=== PATIENT | male | born 1940 | race Caucasian/White ===

== ENCOUNTER 2016-09-27 13:19 | Emergency (ER) | payer OTHER ==
[~2016-09-27] VITALS: Ht 172.7 cm; Wt 77.0 kg
[~2016-09-27 13:19] MED LIST: AMLODIPINE BES2.5 MG PO; ASPIRIN325 MG PO; CELEXA10 MG PO; COQ-10100 MG PO; ELIQUIS5 MG PO; FINASTERIDE5 M1 PO; FINASTERIDE5 MG PO; FUROSEMIDE40 MG PO; GLUCOSAMINE H1500 MG PO; LISINOPRIL20 MG PO; LISINOPRIL40 MG PO; LOPRESSOR25 MG PO; MULTIVITAMIN1 EAC2 PO; SAW PALMETTO 1160 MG PO; SAW PALMETTO160 M1 PO; TYLENOL EXTRA500 MG PO; VITAMIN C500 M1 PO; VITAMIN D1000 UNIT PO; XALATAN2.5 ML BOTH EYES; ZESTRIL,PRINIVI40 MG PO
[2016-09-27] MEDS ORDERED: TAMSULOSIN HCL0.4 MG PO (14:46)
[2016-09-27] MEDS ORDERED: AMLODIPINE BES2.5 MG PO (14:47)
[2016-09-27] MEDS ORDERED: LATANOPROST2.5 ML BOTH EYES (14:47)
[2016-09-27 15:03] LABS: HEMATOCRIT 43.2 % (38.0-50.0); MCH 33.6 PG (29.0-34.0); MCHC 33.8 G/DL (30.0-36.0); MCV 99.3 FL (86-99); PLATELET COUNT 190 K/uL (156-360); RBC DIS.WIDTH-CV 12.3 % (11.8-14.6); RBC DIS.WIDTH-SD 44.1 % (39-53); RED BLOOD COUNT 4.35 M/uL (4.00-5.50); WHITE BLOOD COUNT 6.9 K/uL (4.1-10.2)
[2016-09-27 15:09] LABS: PROTHROMBIN TIME 28.9 (9.2-11.2)
[2016-09-27 15:11] LABS: INTER. NORMALIZED RATIO 2.8
[2016-09-27 15:13] LABS: CHLORIDE 107 mEq/L (99-109); SODIUM 143 mEq/L (136-147)
[2016-09-27 15:14] LABS: GLUCOSE 100 mg/dL (70-99)
[2016-09-27 15:16] LABS: ANION GAP 10 MEQ/L (2-14)
[2016-09-27 15:18] LABS: GFR ESTIMATE (CALCULATED) > 59 mL/min/
[2016-09-27 15:19] LABS: UREA NITROGEN (BUN) 19 mg/dL (9-23)
[2016-09-27 17:39] VITALS: BP 135/58
== END 2016-09-27 17:40 | disposition home or self-care (01) ==
LOC: EME 13:19
PROC: 2Y41X5Z Packing of Nasal Region using Packing Material (ICD-10-PCS; principal; 2016-09-27)
DX: R04.0 Epistaxis (principal); Z79.01 Long term (current) use of anticoagulants; Z86.73 Personal history of transient ischemic attack (TIA), and cerebral infarction without residual deficits
CPT/HCPCS: 80048; 85027; 85610; 86850; 86900; 86901; 99281; 99283

== ENCOUNTER 2017-02-02 03:37 | Inpatient (IN) | payer OTHER ==
[~2017-02-02] VITALS: Ht 172.7 cm; Wt 77.7 kg
[~2017-02-02 03:37] MED LIST changes: +LATANOPROST2.5 ML BOTH EYES; +TAMSULOSIN HCL0.4 MG PO
[2017-02-02 05:11] LABS: ADD MIUA? NO; BILIRUBIN NEGATIVE; BLOOD NEGATIVE; COLOR YELLOW ((YELLOW)); GLUCOSE (STRIP) NEGATIVE; KETONES NEGATIVE; LEUKOCYTES NEGATIVE; NITRITE NEGATIVE; PROTEIN (STRIP) NEGATIVE; SPECIFIC GRAVITY 1.012 (1.000-1.030); UCUL ADDED? NO; UROBILINOGEN 0.2 MG/DL (0.2-1.0)
[2017-02-02 05:24] LABS: CHLORIDE 106 mEq/L (99-109); POTASSIUM 3.2 mEq/L (3.7-5.4); SODIUM 138 mEq/L (136-147)
[2017-02-02 05:27] LABS: GLUCOSE 88 mg/dL (70-99)
[2017-02-02 05:28] LABS: ANION GAP 12 MEQ/L (2-14); TOTAL BILIRUBIN 1.3 mg/dL (0.0-1.0)
[2017-02-02 05:30] LABS: ALKALINE PHOSPHATASE 50 IU/L (3-129); GFR ESTIMATE (CALCULATED) > 59 mL/min/
[2017-02-02 05:31] LABS: HEMATOCRIT 41.4 % (38.0-50.0); MCH 33.6 PG (29.0-34.0); MCHC 34.3 G/DL (30.0-36.0); MCV 98.1 FL (86-99); MEAN PLAT.VOLUME 9.3 uM^3 (9.0-12.4); PLATELET COUNT 133 K/uL (156-360); RBC DIS.WIDTH-CV 12.2 % (11.8-14.6); RBC DIS.WIDTH-SD 44.1 % (39-53); RED BLOOD COUNT 4.22 M/uL (4.00-5.50); UREA NITROGEN (BUN) 17 mg/dL (9-23); WHITE BLOOD COUNT 4.8 K/uL (4.1-10.2)
[2017-02-02 05:32] LABS: DIRECT BILIRUBIN 0.5 mg/dL (0.0-0.3)
[2017-02-02 05:34] LABS: LIPASE 47 U/L (1.0-51.0)
[2017-02-02] MEDS ORDERED: COUMADIN2.5 MG PO (05:37)
[2017-02-02] MEDS ORDERED: VITAMIN D2000 UNI1 PO (05:38)
[2017-02-02] MEDS ORDERED: ASCORBIC ACID500 M3 PO (05:39)
[2017-02-02] MEDS ORDERED: CO Q-10200 MG PO (05:39)
[2017-02-02] MEDS ORDERED: SAW PALMETTO450 MG PO (05:40)
[2017-02-02] MEDS ORDERED: PROBIOTIC1 EAC7 PO (05:40)
[2017-02-02 08:28] LABS: INTER. NORMALIZED RATIO 2.8; PROTHROMBIN TIME 29.5 (9.2-11.2)
[2017-02-02 08:57] LABS: TROP-I INTERPRETATION NEGATIVE; TROPONIN-I 0.01 ng/mL (0.0-0.30)
[2017-02-02 10:25] VITALS: BP 119/58
[2017-02-02 11:59] VITALS: BP 113/55
[2017-02-02 15:29] LABS: TROP-I INTERPRETATION NEGATIVE
[2017-02-02 16:00] LABS: TROPONIN-I 0.02 ng/mL (0.0-0.30)
[2017-02-02 16:10] VITALS: BP 139/55
[2017-02-02 19:15] VITALS: BP 111/52
[2017-02-02 21:22] LABS: TROP-I INTERPRETATION NEGATIVE; TROPONIN-I 0.04 ng/mL (0.0-0.30)
[2017-02-02 23:12] VITALS: BP 116/57
[2017-02-03] VITALS (7 sets, daily range): BP systolic 100–156; BP diastolic 53–73
[2017-02-03 07:08] LABS: INTER. NORMALIZED RATIO 3.9
[2017-02-03 07:12] LABS: ALKALINE PHOSPHATASE 50 IU/L (3-129); ANION GAP 4 MEQ/L (2-14); CHLORIDE 106 MEQ/L (99-109); GFR ESTIMATE (CALCULATED) > 59 mL/min/; GLUCOSE 88 mg/dL (70-99); SAMPLE HEMOLYSIS CHECK 0; SAMPLE ICTERIC CHECK 0; SAMPLE LIPEMIA CHECK 0; SODIUM 139 MEQ/L (136-147); TOTAL BILIRUBIN 1.5 MG/DL (0.0-1.0); UREA NITROGEN (BUN) 18 mg/dL (9-23)
[2017-02-03 07:16] LABS: POTASSIUM 4.5 MEQ/L (3.7-5.4)
[2017-02-04 03:24] VITALS: BP 111/55
[2017-02-04 06:15] LABS: HEMATOCRIT 39.6 % (38.0-50.0); MCH 33.5 PG (29.0-34.0); MCHC 33.6 G/DL (30.0-36.0); MCV 99.7 FL (86-99); MEAN PLAT.VOLUME 9.5 uM^3 (9.0-12.4); PLATELET COUNT 128 K/uL (156-360); RBC DIS.WIDTH-CV 12.7 % (11.8-14.6); RBC DIS.WIDTH-SD 47.5 % (39-53); RED BLOOD COUNT 3.97 M/uL (4.00-5.50); WHITE BLOOD COUNT 6.9 K/uL (4.1-10.2)
[2017-02-04 06:34] LABS: ANION GAP 10 MEQ/L (2-14); CHLORIDE 107 MEQ/L (99-109); GFR ESTIMATE (CALCULATED) > 59 mL/min/; GLUCOSE 83 mg/dL (70-99); POTASSIUM 4.2 MEQ/L (3.7-5.4); SAMPLE HEMOLYSIS CHECK 0; SAMPLE ICTERIC CHECK 0; SAMPLE LIPEMIA CHECK 0; SODIUM 141 MEQ/L (136-147); UREA NITROGEN (BUN) 19 mg/dL (9-23)
[2017-02-04 06:50] LABS: INTER. NORMALIZED RATIO 2.3; PROTHROMBIN TIME 23.7 (9.2-11.2)
[2017-02-04 07:45] VITALS: BP 134/59
[2017-02-04 16:00] VITALS: BP 140/61
[2017-02-04 23:20] VITALS: BP 136/65
[2017-02-05 06:15] LABS: HEMATOCRIT 37.8 % (38.0-50.0); MCH 34.6 PG (29.0-34.0); MCHC 34.7 G/DL (30.0-36.0); MCV 99.7 FL (86-99); MEAN PLAT.VOLUME 9.4 uM^3 (9.0-12.4); PLATELET COUNT 133 K/uL (156-360); RBC DIS.WIDTH-CV 12.8 % (11.8-14.6); RBC DIS.WIDTH-SD 47.1 % (39-53); RED BLOOD COUNT 3.79 M/uL (4.00-5.50); WHITE BLOOD COUNT 5.5 K/uL (4.1-10.2)
[2017-02-05 06:40] LABS: ANION GAP 7 MEQ/L (2-14); CHLORIDE 108 MEQ/L (99-109); GFR ESTIMATE (CALCULATED) > 59 mL/min/; GLUCOSE 89 mg/dL (70-99); MAGNESIUM 1.9 mg/dl (1.3-2.7); SAMPLE HEMOLYSIS CHECK 0; SAMPLE ICTERIC CHECK 0; SAMPLE LIPEMIA CHECK 0; SODIUM 140 MEQ/L (136-147); UREA NITROGEN (BUN) 19 mg/dL (9-23)
[2017-02-05 06:43] LABS: INTER. NORMALIZED RATIO 1.8; PROTHROMBIN TIME 18.2 (9.2-11.2)
[2017-02-05 07:25] VITALS: BP 128/88
[2017-02-05 15:40] VITALS: BP 131/60
[2017-02-05 21:00] VITALS: BP 125/78
[2017-02-06 01:09] VITALS: BP 136/60
[2017-02-06 06:54] LABS: MCH 34.5 PG (29.0-34.0); MCHC 34.5 G/DL (30.0-36.0); MEAN PLAT.VOLUME 9.4 uM^3 (9.0-12.4); PLATELET COUNT 153 K/uL (156-360); RBC DIS.WIDTH-CV 12.6 % (11.8-14.6); RBC DIS.WIDTH-SD 46.5 % (39-53); WHITE BLOOD COUNT 6.2 K/uL (4.1-10.2)
[2017-02-06 06:55] LABS: INTER. NORMALIZED RATIO 1.7; PROTHROMBIN TIME 17.5 (9.2-11.2)
[2017-02-06 07:16] LABS: ANION GAP 10 MEQ/L (2-14); CHLORIDE 108 MEQ/L (99-109); GFR ESTIMATE (CALCULATED) > 59 mL/min/; GLUCOSE 83 mg/dL (70-99); MAGNESIUM 1.9 mg/dl (1.3-2.7); SAMPLE HEMOLYSIS CHECK 0; SAMPLE ICTERIC CHECK 0; SAMPLE LIPEMIA CHECK 0; SODIUM 142 MEQ/L (136-147); UREA NITROGEN (BUN) 17 mg/dL (9-23)
[2017-02-06 07:36] VITALS: BP 145/61
[2017-02-06] MEDS ORDERED: ACIDOPHILUS LA1 EACH PO (11:22)
[2017-02-06] MEDS ORDERED: CIPROFLOXACIN500 M1 PO (11:22)
[2017-02-06] MEDS ORDERED: TYLENOL REGULA325 MG PO (11:22)
== END 2017-02-06 15:32 | DRG 872 ==
LOC: EME → 2EAST → EDBD 03:37 → EME 03:37 → EDOF 07:50 → 2EAST 07:50
PROVIDERS: Hospitalist; Internal Medicine; Physician Assistant
DX: R78.81 Bacteremia (principal); J98.11 Atelectasis; I42.9 Cardiomyopathy, unspecified; I69.353 Hemiplegia and hemiparesis following cerebral infarction affecting right non-dominant side; B96.20 Unspecified Escherichia coli [E. coli] as the cause of diseases classified elsewhere; B96.5 Pseudomonas (aeruginosa) (mallei) (pseudomallei) as the cause of diseases classified elsewhere; D69.6 Thrombocytopenia, unspecified; E87.6 Hypokalemia; I48.2 Chronic atrial fibrillation; N40.0 Benign prostatic hyperplasia without lower urinary tract symptoms; H40.9 Unspecified glaucoma; I25.10 Atherosclerotic heart disease of native coronary artery without angina pectoris; I35.2 Nonrheumatic aortic (valve) stenosis with insufficiency; I10 Essential (primary) hypertension; N28.1 Cyst of kidney, acquired; K57.90 Diverticulosis of intestine, part unspecified, without perforation or abscess without bleeding; K76.89 Other specified diseases of liver; Z79.01 Long term (current) use of anticoagulants; Z95.2 Presence of prosthetic heart valve
CPT/HCPCS: 71010; 74177; 76705; 80048; 80053; 80076; 81003; 83605; 83690; 83735; 84484; 85027; 85610; 87040; 87077; 87186; 87801; 92610 GN; 93005; 93306; 99281; 99285; G0378; G8978 GP CK; G8979 GP CH; G8987 GO CJ; G8988 CI; G8996 GN CH; G8997 GN CH; G8998 GN CH; J0456; J0692; J0696; J2543; J7030; J7050

== ENCOUNTER 2017-09-05 09:45 | Emergency (ER) | payer OTHER ==
[~2017-09-05] VITALS: Ht 175.3 cm; Wt 76.7 kg
[~2017-09-05 09:45] MED LIST changes: +ACIDOPHILUS LA1 EACH PO; +ASCORBIC ACID500 M3 PO; +CIPROFLOXACIN500 M1 PO; +CO Q-10200 MG PO; +COUMADIN2.5 MG PO; +PROBIOTIC1 EAC7 PO; +SAW PALMETTO450 MG PO; +TYLENOL REGULA325 MG PO; +VITAMIN D2000 UNI1 PO
[2017-09-05] MEDS ORDERED: TYLENOL WITH C1 EACH PO (11:18)
[2017-09-05 11:56] VITALS: BP 00/00
== END 2017-09-05 12:02 | disposition home or self-care (01) ==
LOC: EME 09:45
DX: S20.219A Contusion of unspecified front wall of thorax, initial encounter (principal); S80.01XA Contusion of right knee, initial encounter; W01.190A Fall on same level from slipping, tripping and stumbling with subsequent striking against furniture, initial encounter; G20 Parkinson's disease; I10 Essential (primary) hypertension; Z86.73 Personal history of transient ischemic attack (TIA), and cerebral infarction without residual deficits; Z79.01 Long term (current) use of anticoagulants; Z88.8 Allergy status to other drugs, medicaments and biological substances
CPT/HCPCS: 71101; 73564

== ENCOUNTER 2017-10-25 20:44 | Emergency (ER) | payer OTHER ==
[~2017-10-25] VITALS: Ht 175.3 cm; Wt 77.2 kg
[~2017-10-25 20:44] MED LIST changes: +TYLENOL WITH C1 EACH PO
[2017-10-25 21:41] LABS: HEMATOCRIT 41.8 % (38.0-50.0); HEMOGLOBIN 14.4 G/DL (12.5-16.6); MCH 34.9 PG (29.0-34.0); MCHC 34.4 G/DL (30.0-36.0); MCV 101.2 FL (86-99); PLATELET COUNT 159 K/uL (156-360); RBC DIS.WIDTH-CV 12.9 % (11.8-14.6); RBC DIS.WIDTH-SD 48.9 % (39-53); RED BLOOD COUNT 4.13 M/uL (4.00-5.50); WHITE BLOOD COUNT 7.4 K/uL (4.1-10.2)
[2017-10-25 21:49] LABS: INTER. NORMALIZED RATIO 2.2
[2017-10-25 21:51] LABS: PTT 35.3 SEC (25-37)
[2017-10-25 21:55] LABS: CHLORIDE 108 mEq/L (99-109); SODIUM 141 mEq/L (136-147)
[2017-10-25 21:57] LABS: GLUCOSE 92 mg/dL (70-99)
[2017-10-25 22:01] LABS: CREATININE 0.8 mg/dL (0.6-1.3); GFR ESTIMATE (CALCULATED) > 59 mL/min/ (58.99-99999); UREA NITROGEN (BUN) 15 mg/dL (9-23)
[2017-10-25 23:01] VITALS: BP 135/85
== END 2017-10-25 23:13 | disposition home or self-care (01) ==
LOC: EME 20:44
PROVIDERS: Nurse Practitioner Family
DX: S09.90XA Unspecified injury of head, initial encounter (principal); S30.0XXA Contusion of lower back and pelvis, initial encounter; W01.198A Fall on same level from slipping, tripping and stumbling with subsequent striking against other object, initial encounter; I10 Essential (primary) hypertension; I69.354 Hemiplegia and hemiparesis following cerebral infarction affecting left non-dominant side; N40.0 Benign prostatic hyperplasia without lower urinary tract symptoms; I48.91 Unspecified atrial fibrillation; Z79.01 Long term (current) use of anticoagulants; Z88.8 Allergy status to other drugs, medicaments and biological substances
CPT/HCPCS: 70450; 71046; 71250; 72125; 80048; 85027; 85610; 85730; 99281; 99283